=== PATIENT | male | born 1985 | race Caucasian/White ===

== ENCOUNTER → 2023-03-03 | Outpatient (CLI) | payer BC, OTHER ==
[~2023-03-03] MED LIST: ATOR20TA66 PO; FLAX100031 PO; KRIL1CAP PO; MULT-608 PO; OMEG1CAP51 PO; PHEN37.555 PO; TRAM-21 PO
--- NOTE | 2023-03-03 11:47 | Diagnostic Imaging Report ---
EXAMINATION: CT of the brain without contrast, 03/03/2023. TECHNIQUE: Multiple contiguous axial images were obtained through the brain without the use of intravenous contrast. Auto Exposure Controls were utilized during the CT exam to meet ALARA standards for radiation dose reduction. INDICATION: Peripheral vertigo, no known injury. FINDINGS: There is no evidence for acute hemorrhage or infarct. There is no mass, mass effect, midline shift or hydrocephalus. The paranasal sinuses and mastoid air cells demonstrate no acute abnormality. IMPRESSION: No acute intracranial process. Dictated by: Dictated on workstation # [id number]
== END ==
LOC: RAD 11:20
PROVIDERS: ATTEND Physician Assistant
DX: H81.399 Other peripheral vertigo, unspecified ear (principal)
CPT/HCPCS: 70450